=== PATIENT | male | born 2000 | race African-American/Black ===

== ENCOUNTER 2018-04-19 19:24 | Emergency (ER) | payer OTHER ==
[~2018-04-19] VITALS: Ht 170.2 cm; Wt 68.2 kg
[2018-04-19 19:37] VITALS: BP 141/77; TEMP 98.4
[2018-04-19 21:40] VITALS: PULSE 84
== END 2018-04-19 21:40 | disposition home or self-care (01) ==
LOC: COL.ER 19:24
DX: S09.90XA Unspecified injury of head, initial encounter (principal); S70.01XA Contusion of right hip, initial encounter; V00.131A Fall from skateboard, initial encounter; Y92.410 Unspecified street and highway as the place of occurrence of the external cause